=== PATIENT | male | born 1990 | race Caucasian/White ===

== ENCOUNTER 2018-08-04 21:18 | Emergency (ER) | payer OTHER, SELFPAY | END 2018-08-04 22:05 | disposition left against medical advice (07) | LOC: NAV ERS 21:18 | DX: M54.6 Pain in thoracic spine (principal); R00.0 Tachycardia, unspecified; F32.9 Major depressive disorder, single episode, unspecified; F17.210 Nicotine dependence, cigarettes, uncomplicated | CPT/HCPCS: 99283 ==